=== PATIENT | female | born 1995 | race American Indian/Alaskan Native ===

== ENCOUNTER 2019-08-13 13:19 | Emergency (ER) | payer OTHER ==
--- NOTE | 2019-08-13 14:12 | Event Note ---
ED Screening Note Date of service: 08/13/19 Time: 14:08 ED Screening Note: This is a 24 y.o. F. that presents to the ER with nausea, dizziness, and blurry vision since yesterday. - tinnitus, ears pain, vomiting, or abdominal pain LMP 08/08/2019 This initial assessment/diagnostic orders/clinical plan/treatment(s) is/are subject to change based on patients health status, clinical progression and re- assessment by fellow clinical providers in the ED. Further treatment and workup at subsequent clinical providers discretion. Patient/guardian urged not to elope from the ED as their condition may be serious if not clinically assessed and managed. Initial orders include: Accucheck
[2019-08-13 15:21] LABS: Basophils # (Auto) 0.1 K/mm3 (0.0-0.1); Basophils % (Auto) 1.1 % (0.0-1.8); Eosinophils # (Auto) 0.2 K/mm3 (0.0-0.4); Eosinophils % (Auto) 1.8 % (0.0-4.3); Hematocrit 36.5 % (30.3-42.9); Hemoglobin 11.9 gm/dl (10.1-14.3); Lymphocytes # (Auto) 2.5 K/mm3 (1.2-5.4); Lymphocytes % (Auto) 23.8 % (13.4-35.0); Mean Corpuscular HGB Conc 33 % (30-34); Mean Corpuscular Volume 75 fl (79-97); Monocytes # (Auto) 0.7 K/mm3 (0.0-0.8); Monocytes % (Auto) 6.5 % (0.0-7.3); Platelet Count 536 K/mm3 (140-440); Red Blood Count 4.86 M/mm3 (3.65-5.03); Red Cell Distribution Width 15.6 % (13.2-15.2)
[2019-08-13 15:41] LABS: BUN/Creatinine Ratio 20; Blood Urea Nitrogen 12 mg/dL (7-17); Hemolysis Index 3
--- NOTE | 2019-08-13 16:21 | Emergency Department Report ---
ED General Adult HPI - General Chief complaint: Dizziness Stated complaint: BLURR VISION/DIZZY Time Seen by Provider: 08/13/19 14:08 Source: patient Mode of arrival: Ambulatory Limitations: No Limitations - History of Present Illness Initial comments: This is a 24-year-old female who believes she might have "vertigo". She states that when she walks she experiences a spinning sensation. She denies any problems with her ears nose or throat. She denies headache. She denies nausea vomiting photophobia Stiffness or soreness. He's had no focal weakness or numbness. No difficulty with her speech or gait per se other than the spinning sensation. She does not complain of generalized weakness. Respirations states that she presented to an emergency department about 6 months ago with a severe headache. She had a CT of her head at that time. She is reporting this to be to be normal. She did not follow up after that encounter. -: Gradual, hour(s) Quality: other Consistency: intermittent Improves with: none Worsens with: none Associated Symptoms: denies other symptoms Treatments Prior to Arrival: none - Related Data Previous Rx's Medication Instructions Recorded Last Taken Type Meclizine [Antivert] 25 mg PO Q8H PRN #10 tablet 08/13/19 Unknown Rx Allergies Allergy/AdvReac Type Severity Reaction Status Date / Time No Known Allergies Allergy Verified 08/13/19 14:10 ED Review of Systems ROS: Stated complaint: BLURR VISION/DIZZY Other details as noted in HPI Constitutional: denies: chills, fever Eyes: denies: eye pain, eye discharge, vision change ENT: denies: ear pain, throat pain Respiratory: denies: cough, shortness of breath, wheezing Cardiovascular: denies: chest pain, palpitations Endocrine: no symptoms reported Gastrointestinal: denies: abdominal pain, nausea, diarrhea Genitourinary: denies: urgency, dysuria, discharge Musculoskeletal: denies: back pain, joint swelling, arthralgia Skin: denies: rash, lesions Neurological: denies: headache, weakness, paresthesias Psychiatric: denies: anxiety, depression Hematological/Lymphatic: denies: easy bleeding, easy bruising ED Past Medical Hx - Past Medical History Previous Medical History?: No - Surgical History Past Surgical History?: No - Social History Smoking Status: Never Smoker Substance Use Type: None - Medications Home Medications: Home Medications Medication Instructions Recorded Confirmed Last Taken Type Meclizine [Antivert] 25 mg PO Q8H PRN #10 tablet 08/13/19 Unknown Rx ED Physical Exam - General Limitations: No Limitations General appearance: alert, in no apparent distress - Head Head exam: Present: atraumatic, normocephalic - Eye Eye exam: Present: normal appearance. Absent: scleral icterus - ENT ENT exam: Present: mucous membranes moist - Neck Neck exam: Present: normal inspection - Respiratory Respiratory exam: Present: normal lung sounds bilaterally. Absent: respiratory distress - Cardiovascular Cardiovascular Exam: Present: regular rate, normal rhythm. Absent: systolic murmur, diastolic murmur, rubs, gallop - GI/Abdominal GI/Abdominal exam: Present: soft, normal bowel sounds. Absent: distended, tenderness, guarding, rebound, rigid - Extremities Exam Extremities exam: Present: normal inspection, full ROM. Absent: tenderness, calf tenderness - Back Exam Back exam: Present: normal inspection - Neurological Exam Neurological exam: Present: alert, oriented X3, CN II-XII intact. Absent: motor sensory deficit - Psychiatric Psychiatric exam: Present: normal affect, normal mood - Skin Skin exam: Present: warm, dry, intact, normal color. Absent: rash ED Course Vital Signs 08/13/19 08/13/19 14:08 16:39 Temperature 98.2 F Pulse Rate 97 H 76 Respiratory 20 16 Rate Blood Pressure 113/74 107/66 [Right] O2 Sat by Pulse 99 99 Oximetry - Reevaluation(s) Reevaluation #1: The patient states "I'm going to assume this is vertigo". She requested that I looked at her years. She has a normal tympanic membranes and canals. Oropharynx is normal as well she has no sinus tenderness to pressure. He has declined CT examination. I have explained to her that vertigo is a nonspecific designation. She does not want further workup. She has full mental capacity to decline additional testing. She is discharged in stable condition. She is referred to to the [facility]. 08/13/19 18:18 ED Medical Decision Making - Lab Data Result diagrams: 08/13/19 14:57 08/13/19 14:57 Laboratory Results - last 24 hr 08/13/19 08/13/19 14:57 14:57 WBC 10.7 RBC 4.86 Hgb 11.9 Hct 36.5 MCV 75 L MCH 24 L MCHC 33 RDW 15.6 H Plt Count 536 H Lymph % (Auto) 23.8 [place] % (Auto) 6.5 Eos % (Auto) 1.8 Baso % (Auto) 1.1 Lymph # 2.5 [place] # 0.7 Eos # 0.2 Baso # 0.1 Seg Neutrophils % 66.8 Seg Neutrophils # 7.1 Sodium 137 Potassium 4.4 Chloride 100.1 Carbon Dioxide 24 Anion Gap 17 BUN 12 Creatinine 0.6 L Estimated GFR > 60 BUN/Creatinine Ratio 20 Glucose 93 Calcium 9.0 Laboratory Results - last 24 hr 08/13/19 08/13/19 08/13/19 14:57 14:57 17:04 WBC 10.7 RBC 4.86 Hgb 11.9 Hct 36.5 MCV 75 L MCH 24 L MCHC 33 RDW 15.6 H Plt Count 536 H Lymph % (Auto) 23.8 [place] % (Auto) 6.5 Eos % (Auto) 1.8 Baso % (Auto) 1.1 Lymph # 2.5 [place] # 0.7 Eos # 0.2 Baso # 0.1 Seg Neutrophils % 66.8 Seg Neutrophils # 7.1 Sodium 137 Potassium 4.4 Chloride 100.1 Carbon Dioxide 24 Anion Gap 17 BUN 12 Creatinine 0.6 L Estimated GFR > 60 BUN/Creatinine Ratio 20 Glucose 93 Calcium 9.0 Urine Color Straw Urine Turbidity Clear Urine pH 7.0 Ur Specific [place] 1.006 Urine Protein <15 mg/dl Urine Glucose (UA) Neg Urine Ketones Neg Urine Blood Neg Urine Nitrite Neg Ur Reducing Substances Not Reportable Urine Bilirubin Neg Urine Ictotest Not Reportable Urine Urobilinogen < 2.0 Ur Leukocyte Esterase Neg Urine WBC (Auto) < 1.0 Urine RBC (Auto) 1.0 U Epithel Cells (Auto) 4.0 Urine Bacteria (Auto) 1+ Urine HCG, Qual Negative Critical care attestation.: If time is entered above; I have spent that time in minutes in the direct care of this critically ill patient, excluding procedure time. ED Disposition Clinical Impression: Vertigo Disposition: [id number] TO HOME OR SELFCARE Is pt being admited?: No Does the pt Need Aspirin: No Condition: Stable Instructions: Vertigo (ED) Additional Instructions: Her evaluation with a neurologist and/or the [facility] primary care provider is recommended. Do not drive or operate machinery if you're having symptoms of vertigo. Prescriptions: Meclizine [Antivert] 25 mg PO Q8H PRN #10 tablet PRN Reason: Vertigo Referrals: TRAVIS LIRA MD [Primary Care Provider] - 3-5 Days [facility] [Provider Group] - 2-3 Days
[2019-08-13 16:40] VITALS: BP 107/66
[2019-08-13 17:53] LABS: HCG Qualitative,Urine Negative (Negative)
[2019-08-13 17:55] LABS: Bacteria,Urine 1+ /HPF (Negative); Bilirubin,Urine NEG (Negative); Blood,Urine NEG (Negative); Color,Urine Straw (Yellow); Protein,Urine <15 mg/dL mg/dL (Negative); Urobilinogen,Urine < 2.0 mg/dL (<2.0); WBC,Urine < 1.0 /HPF (0.0-6.0)
[2019-08-13 18:17] LABS: Amphetamine Screen,Urine PRESUMPTIVE NEGATIVE; Benzodiazepines Screen,Urine PRESUMPTIVE NEGATIVE; Cannabinoid Screen,Urine PRESUMPTIVE NEGATIVE; Cocaine Screen,Urine PRESUMPTIVE NEGATIVE; Methadone Screen,Urine PRESUMPTIVE NEGATIVE; Opiate Screen,Urine PRESUMPTIVE NEGATIVE
== END 2019-08-13 18:25 | disposition home or self-care (01) ==
LOC: ED 13:19
DX: R42 Dizziness and giddiness (principal); Z79.899 Other long term (current) drug therapy
CPT/HCPCS: 36415; 80048; 80307; 81001; 81025; 85025; 99283